=== PATIENT | female | born 1950 | race Caucasian/White ===

== ENCOUNTER 2023-08-10 16:02 | Inpatient (IN) ==
--- NOTE | 2023-08-10 16:23 | ED Triage Note ---
Date of Service August 10, 2023 Provider in Triage Author: Bam Cyr History of Present Illness This patient was briefly evaluated while in triage. An abbreviated physical exam was performed. This patient is a 73-year-old Female who presents to the ED for evaluation of worsening symptoms of pneumonia. The patient reports that she was diagnosed with pneumonia this past Wednesday. The patient is taking amoxicillin 1 g 3 times daily, and does not feel that she is improving. Patient reports notable fatigue, skin hurting and cough. She denies any shortness of breath other than when coughing. Physical Exam CONSTITUTIONAL: Healthy and well nourished. Alert and oriented X 3. GCS 15. HEENT: No scleral icterus or conjunctival injection. RESPIRATORY: The patient has decreased breath sounds bilaterally. No wheezes, crackles or rhonchi. CARDIAC: Tachycardic rhythm without murmurs, rubs or gallops. INTEGUMENTARY: No rash or other significant dermatologic conditions noted. HEMATOLOGIC: No ecchymosis or petechiae. PSYCHIATRIC: Positive affect. NEUROLOGIC: No focal neurologic deficits noted. Initial orders for labs and / or imaging were placed and patient was placed in the waiting area until a bed is available. Please see further documentation for the full ED course.
[2023-08-10 17:25] LABS: Basophils # (auto) 0.04 K/uL (0.00-0.20); Basophils % (auto) 0.4 %; Eosinophils # (auto) 0.04 K/uL (0.00-0.50); Eosinophils % (auto) 0.4 %; Hematocrit (blood only) 35.2 % (37.0-47.0); Hemoglobin 11.9 g/dl (12.0-16.0); Immature Granulocytes # (auto) 0.02 K/uL (0.01-0.20); Immature Granulocytes % (auto) 0.2 %; Lymphocytes # (auto) 0.47 K/uL (1.20-3.40); Lymphocytes % (auto) 5.1 %; Mean Corpuscular Hemoglobin 30.4 pg (25.0-34.0); Mean Corpuscular Hgb Conc 33.8 g/dL (32.0-36.0); Mean Platelet Volume 10.2 fL (9.4-12.4); Monocytes % (auto) 9.7 %; Neutrophils # (auto) 7.81 K/uL (1.40-6.50); Neutrophils % (auto) 84.2 %; Platelet Count 221 K/uL (130-400); RDW Coefficient of Variation 12.3 % (11.5-14.5); RDW Standard Deviation 40.7 fL (36.4-46.3); Red Blood Count 3.91 M/uL (4.20-5.40); White Blood Count 9.28 K/ul (4.8-10.8)
[2023-08-10 17:32] LABS: Alanine Aminotransferase 13 U/L (7-52); Albumin Globulin Ratio 1.1 (0.9-2); Albumin Level 3.7 gm/dl (3.4-5.0); Alkaline Phosphatase 68 U/L (34-104); Anion Gap 8 (3-11); Aspartate Aminotransferase 20 U/L (13-39); BUN Creatinine Ratio 21.2 (10-20); Bilirubin,Total 0.7 mg/dl (0.2-1.0); Blood Urea Nitrogen 18 mg/dl (6-23); Calcium 8.9 mg/dl (8.6-10.3); Carbon Dioxide 24 mmol/L (21-32); Chloride 105 mmol/L (98-107); Est GFR (African American) 79.9 ml/min; Est GFR (Non-African American) 68.9 ml/min; Globulin 3.3 gm/dl (2.5-4.0); Glucose 170 mg/dl (70-99(Fasting)); Potassium 3.5 mmol/L (3.5-5.1); Sodium 137 mmol/L (136-145)
[2023-08-10 17:58] LABS: Adenovirus PCR Not Detected (NotDetected); Bordetella parapertussis PCR Not Detected (NotDetected); Bordetella pertussis PCR Not Detected (NotDetected); Chlamydia pneumoniae PCR Not Detected (NotDetected); Coronavirus 229E PCR Not Detected (NotDetected); Coronavirus CoV-2 (COVID19)PCR Not Detected (NotDetected); Coronavirus HKU1 PCR Not Detected (NotDetected); Coronavirus NL63 PCR Not Detected (NotDetected); Coronavirus OC43PCR Not Detected (NotDetected); Human Metapneumovirus PCR Not Detected (NotDetected); Influenza A PCR Not Detected (NotDetected); Influenza B PCR Not Detected (NotDetected); Mycoplasma pneumoniae PCR Not Detected (NotDetected); Parainfluenza Virus 1 PCR Not Detected (NotDetected); Parainfluenza Virus 2 PCR Not Detected (NotDetected); Parainfluenza Virus 3 PCR Not Detected (NotDetected); Parainfluenza Virus 4 PCR Not Detected (NotDetected); Respiratory Syncytial VirusPCR Not Detected (NotDetected); Rhinovirus/Enterovirus PCR Not Detected (NotDetected)
--- NOTE | 2023-08-10 18:00 | XRay Report ---
XR chest 2V PA/lateral CLINICAL HISTORY: pNEUMONIA TECHNIQUE: 2 views of the chest were obtained. Comparison: None available at the time of this dictation. FINDINGS: No lines and tubes are seen. The cardiomediastinal silhouette is normal. Right lower lung airspace op acities are seen. No evidence of pleural effusion or pneumothorax. IMPRESSION: Right lower lung airspace opacities. This may represent atelectasis, pneumonia, and/or aspiration. ACT 112: Negative or not required by law. Electronically signed by: Reynaldo Gallagher M.D. 08/10/2023 5:59 PM
--- NOTE | 2023-08-10 18:19 | Emergency Department Note ---
Impression & Plan RLL pneumonia ED Provider Note NAME: SHIRA BRANDON AGE: 73 SEX: Female INFORMANT: Patient ED PROVIDER(S): Ghassan Nguyen MD CHIEF COMPLAINT: Cough PLAN: Disposition: Admitted Outpatient prescription management: none Referral: MEDICAL DECISION MAKING: Patient presented with cough and concerns for pneumonia. X-ray imaging reveals right lower lobe pneumonia. No prior history of the same. Her CBC and chemistry panels were rather unremarkable. Inflammatory markers elevated. The patient had some mild tachycardia but otherwise was looking relatively stable. The tachycardia and findings on x-ray coupled with the lack of predisposing factors, negative bio fire, or sick contacts prompted CT imaging. CT imaging confirms pneumonia without evidence of PE or obstructive process. Patient was given a dose of IV Rocephin. She was monitored and was noted to be mildly hypoxic. She did respond well to supplemental nasal cannula oxygen. In light of the situation she will need further management in the hospital. Consultation was made with Dr. Kaylie Holley of the [facility] service. Patient was evaluated in the ER for further management. Care/management discussed with: manager domestic Level of care consideration(s): After review of the information above and other included data, I feel the patient requires escalation of care to admit Triage Nursing notes: reviewed and agree them. Vital Signs: reviewed and remarkable for tachycardia Additional History obtained from: none Chronic Medical/Social Conditions affecting care: none Prior/ Outside/ External records reviewed: none Differential Diagnosis: Viral syndrome, reactive airway disease, pneumonia, pneumothorax, COPD, CHF, infections, cardiac ischemia, pulmonary embolism, musculoskeletal, gastrointestinal, as well as other pathologies. Diagnostics, independently interpreted by me: ECG: ECG was sinus tachycardia 104 bpm. Septal Q waves. No ST elevation Cardiac Monitoring: Cardiac monitoring ordered by me: The patient was placed on continuous cardiac monitoring and observed. It revealed a sinus tachycardic rhythm at 110 beats per minute without ectopy or evidence of dysrhythmia. Medical decision rules: none Imaging studies: Chest x-ray reveals right lower lobe pneumonia. I refer you to the EMR for further details. HPI: 73 year old Female arrives for evaluation of cough. This started last week and is worsening. The patient also notes the following associated symptoms, congestion, pleuritic back pain, mild ALLEN. The patient has been prescribed amoxil 1000m TID for relieving factors. Current pain is rated as 3/10. Using OTC tylenol and ibuprofen as well. Pt denies LOC, headache, fevers, chills, diaphoresis, visual changes, neck pain, chest pain, nausea, vomiting, abdominal pain, back pain, melena, hematochezia, urinary symptoms, numbness, lymphadenopathy, rash, or other complaints. PAST MEDICAL HISTORY: See Below, trigger finger PAST SURGICAL HISTORY: See Below, SOCIAL HISTORY: See Below, non-smoker HOME MEDICATIONS: See Below ALLERGIES: See Below VITALS: See Below PHYSICAL EXAMINATION: GENERAL: Awake, alert, uncomfortable-appearing, in no distress HENT: Normocephalic, atraumatic. Oropharynx unremarkable. EYES: Normal conjunctiva. Sclera non-icteric. NECK: Inspection normal. Non-tender. Supple. No nuchal rigidity. FROM. No masses. RESPIRATORY: Crackles RLL. No wheezes. Normal respiratory effort. CARDIAC: Normal rate. Normal rhythm. No murmurs. No rubs. Extremities warm and well perfused. Pulses equal. No JVD. GI: Soft, non-distended. No tenderness to palpation. No rebound or guarding. No masses. RECTAL: Deferred. MUSCULOSKELETAL: Atraumatic. Chest examination reveals no tenderness. The back is symmetrical on inspection without obvious abnormality. There is no CVA tenderness to palpation. No joint edema. LOWER EXTREMITIES: Calves are equal size bilaterally and non-tender. No edema. No discoloration. NEURO: Normal sensorium. No sensory or motor deficits noted. SKIN: No rash or jaundice noted. PROCEDURES: none CRITICAL CARE: none OBSERVATION NOTE: none Past Med/Surg History Problem List (Updated 08/10/23 @ 18:19 by Ghassan Nguyen MD) RLL pneumonia (Acute) Social History Smoking Status: Unknown if ever smoked Preferred Language: Luxembourgish Feels Safe at Home: Yes Allergies Allergies Allergy/AdvReac Type Severity Reaction Status Date / Time pollen extracts Allergy Intermediate ITCHY Verified 08/10/23 19:08 EYES, SNEEZING, CONGESTION Home Meds Home Medications Medication Instructions Recorded Confirmed amoxicillin 500 mg capsule 1,000 mg PO TID 08/10/23 08/10/23 atorvastatin 20 mg tablet 20 mg PO DAILY 08/10/23 08/10/23 cholecalciferol (vitamin D3) 25 75 mcg PO DAILY 08/10/23 08/10/23 mcg (1,000 unit) capsule (Vitamin D3) doxycycline hyclate 20 mg tablet 20 mg PO BID 08/10/23 08/10/23 levocetirizine 5 mg tablet (Xyzal) 5 mg PO DAILY 08/10/23 08/10/23 lifitegrast 5 % eye drops in a 1 drp OPB DIRECTED 08/10/23 08/10/23 dropperette (Xiidra) vitamins A,C,T-qakf-ohrcfm 2,148 1 tab PO DAILY 08/10/23 08/10/23 mcg-113 mg-45 mg-17.4 mg tablet (PreserVision AREDS) Results & Data (ED) Vital Signs Vital Signs - 24 hr 08/10/23 16:19 08/10/23 17:51 08/10/23 19:00 Temperature 37 C Temperature Source Temporal Artery Scan Pulse Rate 108 H Pulse Rate [Apical] 60 110 H Pulse Rhythm [Apical] Regular Pulse Strength [Apical] Normal Respiratory Rate 19 20 18 Respiratory Effort / Characteristics Non-Labored Spontaneous Non-Labored Spontaneous Non-Labored Spontaneous Respiratory Depth Normal Normal Normal Respiratory Pattern Regular Blood Pressure 136/94 Blood Pressure [Right Arm] 148/72 H 145/72 H Blood Pressure Mean 108 Blood Pressure Mean [Right Arm] 97 96 Blood Pressure Position [Right Arm] Pulse Oximetry 93 95 93 Oxygen Delivery Method Room Air Room Air Room Air Oxygen Flow Rate Sepsis Recent Fever Within 48 Hours No Sepsis New/Unexplained Change in Mental Status N/A Sepsis Action Taken by Nursing No Action Required Oxygen Flow Rate - Titration Pulse Oximetry Post Tiitration 08/10/23 19:21 08/10/23 20:02 08/10/23 20:56 Temperature 37.2 C Temperature Source Oral Pulse Rate 110 H Pulse Rate [Apical] 116 H Pulse Rhythm [Apical] Regular Pulse Strength [Apical] Normal Respiratory Rate 18 Respiratory Effort / Characteristics Non-Labored Spontaneous Respiratory Depth Normal Respiratory Pattern Regular Blood Pressure Blood Pressure [Right Arm] 129/93 Blood Pressure Mean Blood Pressure Mean [Right Arm] 105 Blood Pressure Position [Right Arm] Sitting Pulse Oximetry 94 86 L Oxygen Delivery Method Room Air Room Air Oxygen Flow Rate Sepsis Recent Fever Within 48 Hours Sepsis New/Unexplained Change in Mental Status Sepsis Action Taken by Nursing Oxygen Flow Rate - Titration 3 Pulse Oximetry Post Tiitration 94 08/10/23 22:00 Temperature Temperature Source Pulse Rate Pulse Rate [Apical] 100 H Pulse Rhythm [Apical] Regular Pulse Strength [Apical] Normal Respiratory Rate 18 Respiratory Effort / Characteristics Non-Labored Spontaneous Respiratory Depth Normal Respiratory Pattern Regular Blood Pressure Blood Pressure [Right Arm] 129/93 Blood Pressure Mean Blood Pressure Mean [Right Arm] 105 Blood Pressure Position [Right Arm] Pulse Oximetry 96 Oxygen Delivery Method Nasal Cannula Oxygen Flow Rate 2 Sepsis Recent Fever Within 48 Hours Sepsis New/Unexplained Change in Mental Status Sepsis Action Taken by Nursing Oxygen Flow Rate - Titration Pulse Oximetry Post Tiitration Laboratory Data 08/10/23 16:40 08/10/23 16:40 Lab Results 08/10/23 Range/Units 16:40 WBC 9.28 (4.8-10.8) K/ul RBC 3.91 L (4.20-5.40) M/uL Hgb 11.9 L (12.0-16.0) g/dl Hct 35.2 L (37.0-47.0) % MCV 90.0 (80.0-100.0) fL MCH 30.4 (25.0-34.0) pg MCHC 33.8 (32.0-36.0) g/dL RDW Std Deviation 40.7 (36.4-46.3) fL RDW Coeff of Shoshana 12.3 (11.5-14.5) % Plt Count 221 (130-400) K/uL MPV 10.2 (9.4-12.4) fL Immature Gran % (Auto) 0.2 % Neut % (Auto) 84.2 % Lymph % (Auto) 5.1 % Hemphill % (Auto) 9.7 % Eos % (Auto) 0.4 % Baso % (Auto) 0.4 % Neut # (Auto) 7.81 H (1.40-6.50) K/uL Lymph # (Auto) 0.47 L (1.20-3.40) K/uL Hemphill # (Auto) 0.90 H (0.11-0.59) K/uL Eos # (Auto) 0.04 (0.00-0.50) K/uL Baso # (Auto) 0.04 (0.00-0.20) K/uL Immature Gran # (Auto) 0.02 (0.01-0.20) K/uL ESR 74 H (0-30) mm/hr Sodium 137 (136-145) mmol/L Potassium 3.5 (3.5-5.1) mmol/L Chloride 105 (98-107) mmol/L Carbon Dioxide 24 (21-32) mmol/L Anion Gap 8 (3-11) BUN 18 (6-23) mg/dl Creatinine 0.85 (0.6-1.2) mg/dl Est Cr Clr Drug Dosing Not Reportable Est GFR ( Amer) 79.9 ml/min Est GFR (Non-Af Amer) 68.9 ml/min BUN/Creatinine Ratio 21.2 H (10-20) Glucose 170 H (70-99(Fasting)) mg/dl Calcium 8.9 (8.6-10.3) mg/dl Total Bilirubin 0.7 (0.2-1.0) mg/dl AST 20 (13-39) U/L ALT 13 (7-52) U/L Alkaline Phosphatase 68 (34-104) U/L Troponin I High Sens 8.0 (0-14) pg/ml Total Protein 7.0 (6.0-8.3) gm/dl Albumin 3.7 (3.4-5.0) gm/dl Globulin 3.3 (2.5-4.0) gm/dl Albumin/Globulin Ratio 1.1 (0.9-2) Procalcitonin 0.12 (0-0.5) ng/ml Adenovirus (PCR) Not Detected (NotDetected) B. pertussis DNA (PCR) Not Detected (NotDetected) B.parapertussis DNA PCR Not Detected (NotDetected) Lyme Disease Screen Negative (Negative) C. pneumoniae DNA (PCR) Not Detected (NotDetected) Coronavirus OC43 (PCR) Not Detected (NotDetected) Coronavirus HKU1 (PCR) Not Detected (NotDetected) Coronavirus 229E (PCR) Not Detected (NotDetected) SARS-CoV-2 (PCR) Not Detected (NotDetected) Coronavirus NL63 (PCR) Not Detected (NotDetected) Human Metapneumovir PCR Not Detected (NotDetected) Influenza Type A (PCR) Not Detected (NotDetected) Influenza Type B (PCR) Not Detected (NotDetected) M. pneumoniae (PCR) Not Detected (NotDetected) Parainfluenza 1 (PCR) Not Detected (NotDetected) Parainfluenza 2 (PCR) Not Detected (NotDetected) Parainfluenza 3 (PCR) Not Detected (NotDetected) Parainfluenza 4 (PCR) Not Detected (NotDetected) RSV (PCR) Not Detected (NotDetected) Entero/Rhino (PCR) Not Detected (NotDetected) Administered Medications Azithromycin 500 mg/ Dextrose 255 mls @ 125 mls/hr IV NOW ONE Stop: 08/10/23 23:33 Last Admin: 08/10/23 22:02 Dose: 125 mls/hr Documented By: JAMES Discontinued Medications Ceftriaxone Sodium (Rocephin) 2,000 mg in 50 mls @ 100 mls/hr IV NOW STA Stop: 08/10/23 20:21 Last Infusion: 08/10/23 20:36 Dose: Infused Documented By: Admin: 08/10/23 20:06 Dose: 100 mls/hr Documented By: JAMES Sodium Chloride (Nss) 1,000 mls @ 999 mls/hr IV .Q1H1M ONE Stop: 08/10/23 21:14 Last Infusion: 08/10/23 21:22 Dose: Infused Documented By: Admin: 08/10/23 20:17 Dose: 999 mls/hr Documented By: JAMES Ibuprofen (Ibuprofen 600 Mg Tab) 600 mg PO NOW STA Stop: 08/10/23 20:15 Last Admin: 08/10/23 20:17 Dose: 600 mg Documented By: JAMES Ioversol (Optiray 320 125ml) 120 ml IV ONCE ONE Stop: 08/10/23 18:31 Last Admin: 08/10/23 18:30 Dose: 120 ml Documented By: DAVID Imaging Data Radiologist's Impression: Chest X-Ray 08/10/23 16:23 XR chest 2V PA/lateral CLINICAL HISTORY: pNEUMONIA TECHNIQUE: 2 views of the chest were obtained. Comparison: None available at the time of this dictation. FINDINGS: No lines and tubes are seen. The cardiomediastinal silhouette is normal. Right lower lung airspace opacities are seen. No evidence of pleural effusion or pneumothorax. IMPRESSION: Right lower lung airspace opacities. This may represent atelectasis, pneumonia, and/or aspiration. ACT 112: Negative or not required by law. Electronically signed by: Reynaldo Gallagher M.D. 08/10/2023 5:59 PM Chest CTA 08/10/23 18:21 CT angio chest PE protocol CLINICAL HISTORY: RLL infiltrate on CXR. TECHNIQUE: Multidetector row helical CT of the chest was performed with angiographic protocol. Coronal and sagittal reformations were obtained. Coronal and sagittal MIPS were obtained from the axial data set and were submitted for review. Automated dose lowering techniques and/or adjustment according to patient size were utilized for this exam. CT DOSE: 483.87 mGy.cm Comparison: Comparison is made to chest radiograph 08/10/2023 FINDINGS: Lungs and pleura: Consolidation is seen in the right lower lobe. Atelectasis is seen in the bilateral lower lungs. There is trace right pleural effusion. Heart and pericardium: Heart size is normal. No pericardial effusion. Vessels: No evidence of pulmonary embolism. Mediastinum and mercedez: Subcentimeter lymph nodes are seen. Chest wall and lower neck: Unremarkable. Abdomen: Unremarkable. Bones: Degenerative changes in the thoracic spine. IMPRESSION: No pulmonary embolus. Right lower lobe pneumonia is seen. There is a trace right pleural effusion. ACT 112: Negative or not required by law. Electronically signed by: Reynaldo Gallagher M.D. 08/10/2023 7:40 PM Discharge Plan Visit Data Chief Complaint: Cough Stated Complaint: PNEUMONIA, TREATMENT/NO PROGRESS ED Provider: Ghassan Nguyen Discharge Problem: RLL pneumonia Forms Stand Alone Forms: [facility] Prescriptions Prescriptions: No Action amoxicillin 500 mg capsule 1,000 mg PO TID Rx Instructions: STARTED 08/08/23 FOR 7 DAYS atorvastatin 20 mg tablet 20 mg PO DAILY doxycycline hyclate 20 mg tablet 20 mg PO BID cholecalciferol (vitamin D3) [Vitamin D3] 25 mcg (1,000 unit) Capsule 75 mcg PO DAILY levocetirizine [Xyzal] 5 mg Tablet 5 mg PO DAILY PreserVision AREDS 2,148 mcg-113 mg-45 mg-17.4mg Tablet 1 tab PO DAILY Xiidra 5 % dropperette 1 drp OPB DIRECTED Referrals Referrals: Marline Adair MD [Primary Care Provider] -
[2023-08-10] MEDS: OPTIRAY 320 125ml IV ONE (18:30)
--- NOTE | 2023-08-10 19:41 | CT Scan Report ---
CT angio chest PE protocol CLINICAL HISTORY: RLL infiltrate on CXR. TECHNIQUE: Multidetector row helical CT of the chest was performed with angiographic protocol. Clement l and sagittal reformations were obtained. Coronal and sagittal MIPS were obtained from the axial anita a set and were submitted for review. Automated dose lowering techniques and/or adjustment according to patient size were utilized for this exam. CT DOSE: 483.87 mGy.cm Comparison: Comparison is made to chest radiograph 08/10/2023 FINDINGS: Lungs and pleura: Consolidation is seen in the right lower lobe. Atelectasis is seen in the bilateral lower lungs. There is trace right pleural effusion. Heart and pericardium: Heart size is normal. No pericardial effusion. Vessels: No evidence of pulmonary embolism. Mediastinum and mercedez: Subcentimeter lymph nodes are seen. Chest wall and lower neck: Unremarkable. Abdomen: Unremarkable. Bones: Degenerative changes in the thoracic spine. IMPRESSION: No pulmonary embolus. Right lower lobe pneumonia is seen. There is a trace right pleural effusion. ACT 112: Negative or not required by law. Electronically signed by: Reynaldo Gallagher M.D. 08/10/2023 7:40 PM
[2023-08-10] MEDS: cefTRIAXone SODIUM 2,000 MG/50 ML BAG IV STA (20:06)
[2023-08-10] MEDS: SODIUM CHLORIDE 0.9% 1,000 ML IV ONE (20:17)
[2023-08-10] MEDS: IBUPROFEN 600 MG TAB PO STA (20:17)
[2023-08-10] MEDS: AZITHROMYCIN 500 MG in DEXTROSE 5% 250 ML IV ONE (22:02)
--- NOTE | 2023-08-10 22:07 | History & Physical Report ---
Date of Service August 10, 2023 Assessment & Plan (1) RLL pneumonia: Plan: 73yo female presenting with RLL PNA. Patient afebrile, tachycardic and hypoxic on arrival. Procalcitonin is within normal limits. Respiratory biofire panel is NEGATIVE -Admit to medical with telemetry -Follow cultures sent from ER - of note, blood cultures were sent after administration of antibiotics -Continue Ceftriaxone and Azithromycin for treatment of CAP -Continue supplemental O2 as needed -Flutter valve and incentive spirometry -LR at 125mL/hr x 1L -Guaifenesin 1200mg po BID -Robitussin PRN -Tylenol PRN -Zofran PRN Plan Chronic Issues: Hyperlipidemia - chronic -Continue home Atorvastatin F/E/N - LR at 125mL/hr x 1L, electrolytes WNL, Regular diet as tolerated Ppx - Lovenox Code - Full Dispo - Admit to medical with telemetry History of Present Illness Chief Complaint: shortness of breath Primary Care Provider: Marline Adair MD Edith Jonas is a 73yo female with history of HLP presenting with shortness of breath. Patient developed cough and congestion 4-5 days ago. She went to urgent care and was diagnosed clinically with PNA. She was prescribed Amoxicillin 1000mg po TID which she has been taking without difficulty - no improvement. Patient is from out of town and is camping with her at [facility]. She has had persistent cough as well as fever, chills, body and joint pain. She has bandlike chest discomfort with coughing. She has been taking Ibuprofen and Tylenol with minimal improvement in symptoms. No recent travel or sick contacts. No known pulmonary disease or history of tobacco use. In the ER she is afebrile, tachycardic on arrival with HR of 116, hypoxic at 86% on room air. Now on 2L NC with adequate saturation 97% ER Course: Azithromycin Ceftriaxone Ibuprofen NSS Allergies Allergy/AdvReac Type Severity Reaction Status Date / Time pollen extracts Allergy Intermediate ITCHY Verified 08/10/23 19:08 EYES, SNEEZING, CONGESTION Home Medications Medication Instructions Recorded Confirmed Type amoxicillin 500 mg capsule 1,000 mg PO TID 08/10/23 08/10/23 History atorvastatin 20 mg tablet 20 mg PO DAILY 08/10/23 08/10/23 History cholecalciferol (vitamin D3) 25 75 mcg PO DAILY 08/10/23 08/10/23 History mcg (1,000 unit) capsule (Vitamin D3) doxycycline hyclate 20 mg tablet 20 mg PO BID 08/10/23 08/10/23 History levocetirizine 5 mg tablet (Xyzal) 5 mg PO DAILY 08/10/23 08/10/23 History lifitegrast 5 % eye drops in a 1 drp OPB DIRECTED 08/10/23 08/10/23 History dropperette (Xiidra) vitamins A,C,I-dtqh-vkteam 2,148 1 tab PO DAILY 08/10/23 08/10/23 History mcg-113 mg-45 mg-17.4 mg tablet (PreserVision AREDS) Past Med/Surg History Problem List (Updated 08/11/23 @ 02:25 by Kaylie Holley DO) RLL pneumonia (Acute) Medical History (Updated 08/11/23 @ 02:25 by Kaylie Holley DO) Hyperlipidemia Surgical History (Updated 08/11/23 @ 02:26 by Kaylie Holley DO) History of shoulder surgery Family History (Updated 08/11/23 @ 02:26 by Kaylie Holley DO) Other Coronary heart disease Social History Smoking Status: Former smoker Hx Alcohol Use: Yes Alcohol type: wine Hx Substance Use: No Preferred Language: Tamazight Communication Ability: Effective Beliefs That Will Affect Care: None Current Living Situation: Spouse Feels Safe at Home: Yes Review of Systems Review of Systems: All systems reviewed & are unremarkable except as noted in HPI & below Physical Exam Physical Exam: General: patient resting comfortably, NAD, non-toxic in appearance, AA&O x 4 Skin: warm, dry, intact, no rashes or lesions HEENT: NC/AT, PERRL, EOMI, anicteric sclera, conjunctiva without injection, external ear normal to inspection and nontender, nares patent, moist mucus membranes, dentition intact, no oropharyngeal lesions, neck supple, trachea midline, no LAD, no thyromegaly, no JVD Heart: +S1/S2, regular, tachycardic, no m/r/g Lungs: equal air entry bilaterally, patient coughs with deep breathing, coarse breath sounds bilaterally R > L, no wheeze Abd: +BS, soft, NT/ND, no masses/organomegaly/ascites Ext: warm, 2+ pulses in UE/LE bilaterally, no clubbing/cyanosis or edema Neuro: nonfocal, patient AA&O x 4, speech intact, no facial droop, moving all extremities on command with equal strength 5/5 Results & Data Results & Data Vital Signs (Past 12 Hours) Vital Signs Temp Pulse Pulse Resp BP BP Pulse Ox 08/10/23 20:56 86 L 08/10/23 20:02 37.2 C 116 H 18 129/93 94 08/10/23 19:21 110 H 08/10/23 19:00 110 H 18 145/72 H 93 08/10/23 17:51 60 20 148/72 H 95 08/10/23 16:19 37 C 108 H 19 136/94 93 O2 Del Method 08/10/23 20:56 Room Air 08/10/23 20:02 Room Air 08/10/23 19:21 08/10/23 19:00 Room Air 08/10/23 17:51 Room Air 08/10/23 16:19 Room Air Laboratory Results Laboratory Results WBC 9.28 K/ul (4.8-10.8) 08/10/23 16:40 RBC 3.91 M/uL (4.20-5.40) L 08/10/23 16:40 Hgb 11.9 g/dl (12.0-16.0) L 08/10/23 16:40 Hct 35.2 % (37.0-47.0) L 08/10/23 16:40 MCV 90.0 fL (80.0-100.0) 08/10/23 16:40 MCH 30.4 pg (25.0-34.0) 08/10/23 16:40 MCHC 33.8 g/dL (32.0-36.0) 08/10/23 16:40 RDW Std Deviation 40.7 fL (36.4-46.3) 08/10/23 16:40 RDW Coeff of Shoshana 12.3 % (11.5-14.5) 08/10/23 16:40 Plt Count 221 K/uL (130-400) 08/10/23 16:40 MPV 10.2 fL (9.4-12.4) 08/10/23 16:40 Immature Gran % (Auto) 0.2 % 08/10/23 16:40 Neut % (Auto) 84.2 % 08/10/23 16:40 Lymph % (Auto) 5.1 % 08/10/23 16:40 Addison % (Auto) 9.7 % 08/10/23 16:40 Eos % (Auto) 0.4 % 08/10/23 16:40 Baso % (Auto) 0.4 % 08/10/23 16:40 Neut # (Auto) 7.81 K/uL (1.40-6.50) H 08/10/23 16:40 Lymph # (Auto) 0.47 K/uL (1.20-3.40) L 08/10/23 16:40 Addison # (Auto) 0.90 K/uL (0.11-0.59) H 08/10/23 16:40 Eos # (Auto) 0.04 K/uL (0.00-0.50) 08/10/23 16:40 Baso # (Auto) 0.04 K/uL (0.00-0.20) 08/10/23 16:40 Immature Gran # (Auto) 0.02 K/uL (0.01-0.20) 08/10/23 16:40 ESR 74 mm/hr (0-30) H 08/10/23 16:40 Sodium 137 mmol/L (136-145) 08/10/23 16:40 Potassium 3.5 mmol/L (3.5-5.1) 08/10/23 16:40 Chloride 105 mmol/L (98-107) 08/10/23 16:40 Carbon Dioxide 24 mmol/L (21-32) 08/10/23 16:40 Anion Gap 8 (3-11) 08/10/23 16:40 BUN 18 mg/dl (6-23) 08/10/23 16:40 Creatinine 0.85 mg/dl (0.6-1.2) 08/10/23 16:40 Est Cr Clr Drug Dosing Not Reportable 08/10/23 16:40 Est GFR ( Amer) 79.9 ml/min 08/10/23 16:40 Est GFR (Non-Af Amer) 68.9 ml/min 08/10/23 16:40 BUN/Creatinine Ratio 21.2 (10-20) H 08/10/23 16:40 Glucose 170 mg/dl (70-99(Fasting)) H 08/10/23 16:40 Calcium 8.9 mg/dl (8.6-10.3) 08/10/23 16:40 Total Bilirubin 0.7 mg/dl (0.2-1.0) 08/10/23 16:40 AST 20 U/L (13-39) 08/10/23 16:40 ALT 13 U/L (7-52) 08/10/23 16:40 Alkaline Phosphatase 68 U/L (34-104) 08/10/23 16:40 Troponin I High Sens 8.0 pg/ml (0-14) 08/10/23 16:40 Total Protein 7.0 gm/dl (6.0-8.3) 08/10/23 16:40 Albumin 3.7 gm/dl (3.4-5.0) 08/10/23 16:40 Globulin 3.3 gm/dl (2.5-4.0) 08/10/23 16:40 Albumin/Globulin Ratio 1.1 (0.9-2) 08/10/23 16:40 Procalcitonin 0.12 ng/ml (0-0.5) 08/10/23 16:40 Adenovirus (PCR) Not Detected (NotDetected) 08/10/23 16:40 B. pertussis DNA (PCR) Not Detected (NotDetected) 08/10/23 16:40 B.parapertussis DNA PCR Not Detected (NotDetected) 08/10/23 16:40 Lyme Disease Screen Negative (Negative) 08/10/23 16:40 C. pneumoniae DNA (PCR) Not Detected (NotDetected) 08/10/23 16:40 Coronavirus OC43 (PCR) Not Detected (NotDetected) 08/10/23 16:40 Coronavirus HKU1 (PCR) Not Detected (NotDetected) 08/10/23 16:40 Coronavirus 229E (PCR) Not Detected (NotDetected) 08/10/23 16:40 SARS-CoV-2 (PCR) Not Detected (NotDetected) 08/10/23 16:40 Coronavirus NL63 (PCR) Not Detected (NotDetected) 08/10/23 16:40 Human Metapneumovir PCR Not Detected (NotDetected) 08/10/23 16:40 Influenza Type A (PCR) Not Detected (NotDetected) 08/10/23 16:40 Influenza Type B (PCR) Not Detected (NotDetected) 08/10/23 16:40 M. pneumoniae (PCR) Not Detected (NotDetected) 08/10/23 16:40 Parainfluenza 1 (PCR) Not Detected (NotDetected) 08/10/23 16:40 Parainfluenza 2 (PCR) Not Detected (NotDetected) 08/10/23 16:40 Parainfluenza 3 (PCR) Not Detected (NotDetected) 08/10/23 16:40 Parainfluenza 4 (PCR) Not Detected (NotDetected) 08/10/23 16:40 RSV (PCR) Not Detected (NotDetected) 08/10/23 16:40 Entero/Rhino (PCR) Not Detected (NotDetected) 08/10/23 16:40 Impressions Chest X-Ray 08/10/23 16:23 XR chest 2V PA/lateral CLINICAL HISTORY: pNEUMONIA TECHNIQUE: 2 views of the chest were obtained. Comparison: None available at the time of this dictation. FINDINGS: No lines and tubes are seen. The cardiomediastinal silhouette is normal. Right lower lung airspace opacities are seen. No evidence of pleural effusion or pneumothorax. IMPRESSION: Right lower lung airspace opacities. This may represent atelectasis, pneumonia, and/or aspiration. ACT 112: Negative or not required by law. Electronically signed by: Reynaldo Gallagher M.D. 08/10/2023 5:59 PM Chest CTA 08/10/23 18:21 CT angio chest PE protocol CLINICAL HISTORY: RLL infiltrate on CXR. TECHNIQUE: Multidetector row helical CT of the chest was performed with angiographic protocol. Coronal and sagittal reformations were obtained. Coronal and sagittal MIPS were obtained from the axial data set and were submitted for review. Automated dose lowering techniques and/or adjustment according to patient size were utilized for this exam. CT DOSE: 483.87 mGy.cm Comparison: Comparison is made to chest radiograph 08/10/2023 FINDINGS: Lungs and pleura: Consolidation is seen in the right lower lobe. Atelectasis is seen in the bilateral lower lungs. There is trace right pleural effusion. Heart and pericardium: Heart size is normal. No pericardial effusion. Vessels: No evidence of pulmonary embolism. Mediastinum and mercedez: Subcentimeter lymph nodes are seen. Chest wall and lower neck: Unremarkable. Abdomen: Unremarkable. Bones: Degenerative changes in the thoracic spine. IMPRESSION: No pulmonary embolus. Right lower lobe pneumonia is seen. There is a trace right pleural effusion. ACT 112: Negative or not required by law. Electronically signed by: Reynaldo Gallagher M.D. 08/10/2023 7:40 PM ECG Additional Comments: EKG with ST at 104bpm, normal axis, ER=475, QRS=86, FWx=980, poor R wave progression, no acute ischemic changes Code Status & VTE Plan VTE Prophylaxis Plan VTE Prophylaxis will be ordered: Yes PG Care Time/CCT Total # of Minutes Spent Total Time Spent with Patient: Total time spent is greater than 50% in coordination of care (as documented) at patient's floor/unit and/or counseling patient: Coding Level of Care Code 84832 INT INP/OBS CARE 2/55MIN Diagnoses RLL pneumonia J18.9
[2023-08-10] MEDS ORDERED: ONDANSETRON INJ 2 MG/ML 2 ML VIAL IV PRN (23:51)
[2023-08-11] MEDS: LACTATED RINGER'S 1,000 ML IV SCH (00:14)
[2023-08-11] MEDS: guaiFENesin/DEXTROM SYRUP 200MG/20MG 10ML UDC PO PRN (03:13)
[2023-08-11] MEDS: ACETAMINOPHEN 325 MG TAB PO PRN (03:13)
[2023-08-11 07:20] LABS: Hematocrit (blood only) 33.7 % (37.0-47.0); Hemoglobin 11.1 g/dl (12.0-16.0); Mean Corpuscular Hemoglobin 30.4 pg (25.0-34.0); Mean Corpuscular Hgb Conc 32.9 g/dL (32.0-36.0); Mean Corpuscular Volume 92.3 fL (80.0-100.0); Platelet Count 215 K/uL (130-400); RDW Coefficient of Variation 12.4 % (11.5-14.5); Red Blood Count 3.65 M/uL (4.20-5.40); White Blood Count 9.67 K/ul (4.8-10.8)
[2023-08-11 07:47] LABS: BUN Creatinine Ratio 16.4 (10-20); Calcium 8.4 mg/dl (8.6-10.3); Est GFR (Non-African American) 82.9 ml/min; Potassium 3.6 mmol/L (3.5-5.1)
[2023-08-11] MEDS: ENOXAPARIN INJ 40 MG/0.4 ML SYR SQ SCH (08:32)
[2023-08-11] MEDS: ATORVASTATIN 20 MG TAB PO SCH (08:33)
[2023-08-11] MEDS: guaiFENesin 600 MG TABCR PO SCH (08:34)
--- NOTE | 2023-08-11 14:44 | Hospitalist Progress Note ---
Date of Service August 11, 2023 Assessment & Plan (1) RLL pneumonia: Plan: Presents to the hospital on account of worsening shortness of breath. Chest x-ray showed evidence of right lower lobe pneumonia. Respiratory bio fire is negative Cultures already obtained, result pending Continue Diez IV ceftriaxone and azithromycin Continue supplemental oxygen (2) Hypoxia: Plan: Secondary to pneumonia Currently untreated oxygen through nasal cannula Wean as tolerated Plan Chronic Issues: Hyperlipidemia - chronic -Continue home Atorvastatin F/E/N - LR at 125mL/hr x 1L, electrolytes WNL, Regular diet as tolerated Ppx - Lovenox Code - Full Dispo - Admit to medical with telemetry Admission and Anticipated Discharge Date Admission Date: August 10, 2023 Subjective Patient seen and examined, still little short of breath, on oxygen 3 L per nasal cannula. Denies fevers or chills Review of Systems Review of Systems: All systems reviewed are negative, apart from the ones contained in the history. Physical Exam Physical Exam: The patient is awake, alert and oriented 3, well developed and well nourished, normocephalic and atraumatic, lying in bed and in no acute distress. HEENT--PERRL, EOMI, mucous membranes and oropharynx mildly dry Neck--supple. No JVD. No bruits. Thyroid normal, trachea midline, no adenopathy. Heart--normal S1 and S2. No murmurs, rubs or gallops. Lungs--clear bilaterally, no respiratory distress, no accessory muscle use. Abdomen--normal bowel sounds and soft. Extremities--no cyanosis or clubbing. No edema. Dermatologic--normal skin turgor, normal color, no abnormal lymph nodes, no rash. Neurologic--cranial nerves II through XII grossly intact. Rheumatologic--normal range of motion. Psychiatric--normal affect. Results & Data Results & Data Vital Signs (Past 12 Hours) Vital Signs Temp Pulse Pulse Pulse Resp BP BP 08/11/23 10:54 99.0 F 89 18 126/74 08/11/23 09:16 08/11/23 07:18 99.0 F 100 H 18 136/72 08/11/23 07:12 92 H 08/11/23 04:00 98.8 F 98 H 18 128/67 Pulse Ox O2 Del Method O2 Flow Rate 08/11/23 10:54 95 Nasal Cannula 3 08/11/23 09:16 Nasal Cannula 3 08/11/23 07:18 95 Nasal Cannula 3 08/11/23 07:12 08/11/23 04:00 94 Nasal Cannula 3 PG Care Time/CCT Total # of Minutes Spent Total Time Spent with Patient: Total time spent is greater than 50% in coordination of care (as documented) at patient's floor/unit and/or counseling patient: Coding Level of Care Code 73734 SUB INP/OBS CARE 2/35MIN Diagnoses RLL pneumonia J18.9 Hypoxia R09.02 Time Spent (min) 35
[2023-08-11] MEDS: SODIUM CHLORIDE 0.9% 1,000 ML IV SCH (15:26)
--- NOTE | 2023-08-11 16:18 | Electrocardiogram Report ---
Test Reason : Blood Pressure : / mmHG Vent. Rate : 104 BPM Atrial Rate : 104 BPM P-R Int : 136 ms QRS Dur : 086 ms QT Int : 298 ms P-R-T Axes : 059 040 042 degrees QTc Int : 391 ms Sinus tachycardia Septal infarct , age undetermined Abnormal ECG No previous ECGs available Confirmed by Rodriguez Alas ([id number]) on 08/11/2023 4:18:26 PM Referred By: REFERRED SELF Confirmed By:Rodriguez Alas
[2023-08-11] MEDS: cefTRIAXone SODIUM 1,000 MG/50 ML BAG IV SCH (19:50)
[2023-08-11] MEDS: AZITHROMYCIN 250 MG in DEXTROSE 5% 250 ML IV SCH (20:38)
[2023-08-12 08:28] LABS: Hematocrit (blood only) 32.1 % (37.0-47.0); Hemoglobin 10.6 g/dl (12.0-16.0); Mean Corpuscular Hemoglobin 30.1 pg (25.0-34.0); Mean Corpuscular Volume 91.2 fL (80.0-100.0); Mean Platelet Volume 9.7 fL (9.4-12.4); Platelet Count 234 K/uL (130-400); RDW Coefficient of Variation 12.3 % (11.5-14.5); RDW Standard Deviation 41.4 fL (36.4-46.3); Red Blood Count 3.52 M/uL (4.20-5.40); White Blood Count 9.63 K/ul (4.8-10.8)
[2023-08-12 08:45] LABS: BUN Creatinine Ratio 14.3 (10-20); Calcium 8.1 mg/dl (8.6-10.3); Creatinine Clr Calc Pharmacy 63.7 ml/min; Est GFR (Non-African American) 87.2 ml/min; Potassium 3.6 mmol/L (3.5-5.1)
--- NOTE | 2023-08-12 11:17 | Hospitalist Progress Note ---
Date of Service August 12, 2023 Assessment & Plan (1) RLL pneumonia: Plan: Presents to the hospital on account of worsening shortness of breath. Chest x-ray showed evidence of right lower lobe pneumonia. Respiratory bio fire is negative Cultures already obtained, result pending Continue empiric IV ceftriaxone and azithromycin Continue supplemental oxygen Patient feels better today (2) Hypoxia: Plan: Secondary to pneumonia Currently on 3L oxygen through nasal cannula Wean as tolerated Plan Chronic Issues: Hyperlipidemia - chronic -Continue home Atorvastatin F/E/N - LR at 125mL/hr x 1L, electrolytes WNL, Regular diet as tolerated Ppx - Lovenox Code - Full Dispo - hopefully d/c in the next 24 to 48 hrs Admission and Anticipated Discharge Date Admission Date: August 10, 2023 Subjective Patient seen and examined, still little short of breath, on oxygen 3 L per nasal cannula. Denies fevers or chills, feels a little better Review of Systems Review of Systems: All systems reviewed are negative, apart from the ones contained in the history. Physical Exam Physical Exam: The patient is awake, alert and oriented 3, well developed and well nourished, normocephalic and atraumatic, lying in bed and in no acute distress. HEENT--PERRL, EOMI, mucous membranes and oropharynx mildly dry Neck--supple. No JVD. No bruits. Thyroid normal, trachea midline, no adenopathy. Heart--normal S1 and S2. No murmurs, rubs or gallops. Lungs--clear bilaterally, no respiratory distress, no accessory muscle use. Abdomen--normal bowel sounds and soft. Extremities--no cyanosis or clubbing. No edema. Dermatologic--normal skin turgor, normal color, no abnormal lymph nodes, no rash. Neurologic--cranial nerves II through XII grossly intact. Rheumatologic--normal range of motion. Psychiatric--normal affect. Results & Data Results & Data Vital Signs (Past 12 Hours) Vital Signs Temp Pulse Pulse Resp BP Pulse Ox O2 Del Method 08/12/23 10:03 Nasal Cannula 08/12/23 08:17 98.1 F 95 H 19 132/74 93 Nasal Cannula 08/12/23 08:10 96 H 08/12/23 04:00 98.1 F 102 H 18 142/75 H 94 Nasal Cannula 08/12/23 00:24 93 H 08/11/23 23:32 98.2 F 89 18 129/72 94 Nasal Cannula O2 Flow Rate 08/12/23 10:03 3 08/12/23 08:17 3 08/12/23 08:10 08/12/23 04:00 3 08/12/23 00:24 08/11/23 23:32 3 PG Care Time/CCT Total # of Minutes Spent Total Time Spent with Patient: Total time spent is greater than 50% in coordination of care (as documented) at patient's floor/unit and/or counseling patient: Coding Level of Care Code 84537 SUB INP/OBS CARE 2/35MIN Diagnoses RLL pneumonia J18.9 Hypoxia R09.02 Time Spent (min) 35
[2023-08-13 07:29] LABS: Hematocrit (blood only) 32.6 % (37.0-47.0); Mean Corpuscular Hemoglobin 30.8 pg (25.0-34.0); Mean Corpuscular Hgb Conc 33.7 g/dL (32.0-36.0); Mean Corpuscular Volume 91.3 fL (80.0-100.0); Mean Platelet Volume 9.6 fL (9.4-12.4); Platelet Count 243 K/uL (130-400); RDW Coefficient of Variation 12.2 % (11.5-14.5); Red Blood Count 3.57 M/uL (4.20-5.40); White Blood Count 6.33 K/ul (4.8-10.8)
[2023-08-13 08:05] LABS: BUN Creatinine Ratio 14.3 (10-20); Calcium 8.1 mg/dl (8.6-10.3); Creatinine Clr Calc Pharmacy 70.7 ml/min; Est GFR (African American) 104.6 ml/min; Est GFR (Non-African American) 90.2 ml/min; Potassium 3.4 mmol/L (3.5-5.1)
--- NOTE | 2023-08-13 13:29 | Discharge Summary ---
Date of Service August 13, 2023 Admission HPI Per Admitting Provider Edith Jonas is a 73yo female with history of HLP presenting with shortness of breath. Patient developed cough and congestion 4-5 days ago. She went to urgent care and was diagnosed clinically with PNA. She was prescribed Amoxicillin 1000mg po TID which she has been taking without difficulty - no improvement. Patient is from out of town and is camping with her at [facility]. She has had persistent cough as well as fever, chills, body and joint pain. She has bandlike chest discomfort with coughing. She has been taking Ibuprofen and Tylenol with minimal improvement in symptoms. No recent travel or sick contacts. No known pulmonary disease or history of tobacco use. In the ER she is afebrile, tachycardic on arrival with HR of 116, hypoxic at 86% on room air. Now on 2L NC with adequate saturation 97% ER Course: Azithromycin Ceftriaxone Ibuprofen NSS Principal Diagnosis lobar pna Discharge Exam The patient is awake, alert and oriented 3, well developed and well nourished, normocephalic and atraumatic, lying in bed and in no acute distress. HEENT--PERRL, EOMI, mucous membranes and oropharynx mildly dry Neck--supple. No JVD. No bruits. Thyroid normal, trachea midline, no adenopathy. Heart--normal S1 and S2. No murmurs, rubs or gallops. Lungs--clear bilaterally, no respiratory distress, no accessory muscle use. Abdomen--normal bowel sounds and soft. Extremities--no cyanosis or clubbing. No edema. Dermatologic--normal skin turgor, normal color, no abnormal lymph nodes, no rash. Neurologic--cranial nerves II through XII grossly intact. Rheumatologic--normal range of motion. Psychiatric--normal affect. Discharge Data Allergies Allergy/AdvReac Type Severity Reaction Status Date / Time pollen extracts Allergy Intermediate ITCHY Verified 08/10/23 19:08 EYES, SNEEZING, CONGESTION Consultations 08/10/23 21:44 ED Decision to Admit Stat Ordered Studies 08/10/23 18:21 CT for pulmonary embolism PE [CT angio chest PE protocol] Stat Hospital Course (1) RLL pneumonia: Presents to the hospital on account of worsening shortness of breath. Chest x-ray showed evidence of right lower lobe pneumonia. Respiratory bio fire is negative Cultures already obtained, result pending Continue empiric IV ceftriaxone and azithromycin Continue supplemental oxygen Patient feels better today Discharged on p.o. azithromycin and cefdinir for 5 days (2) Hypoxia: Secondary to pneumonia Requiring 2 L of oxygen after two-step Discharged on home oxygen Plan Chronic Issues: Hyperlipidemia - chronic -Continue home Atorvastatin F/E/N - LR at 125mL/hr x 1L, electrolytes WNL, Regular diet as tolerated Ppx - Lovenox Code - Full Dispo - hopefully d/c in the next 24 to 48 hrs Total Time Total Time Spent Total Time Spent (In Minutes): 35 Discharge Plan Discharge Items Patient Disposition: Home - Self-Care Reason For Visit: PNEUMONIA Discharge Diagnosis: lobar PNA Activity: Resume your previous activity Non-emergency contact: Primary Care Provider Call non-emergency contact if: you have any medication questions Follow-up/Referrals: Marline Adair MD [Primary Care Provider] - (PLEASE CALL YOUR PRIMARY CARE PROVIDER TO SCHEDULE A HOSPITAL DISCHARGE FOLLOW-UP APPOINTMENT WITHIN 7-10 DAYS) Diet: Regular Addtl Attending Provider Instructions: Please make appointment to follow-up with her regular PCP Pending Studies at Discharge: No Stand-Alone Forms: [employer], Smoking Cessation Medications and DC Order Prescriptions: New azithromycin 500 mg tablet 500 mg PO DAILY 5 Days Qty: 5 0RF cefdinir 300 mg capsule 300 mg PO BID 5 Days Qty: 10 0RF Continued atorvastatin 20 mg tablet 20 mg PO DAILY cholecalciferol (vitamin D3) [Vitamin D3] 25 mcg (1,000 unit) Capsule 75 mcg PO DAILY levocetirizine [Xyzal] 5 mg Tablet 5 mg PO DAILY PreserVision AREDS 2,148 mcg-113 mg-45 mg-17.4mg Tablet 1 tab PO DAILY Xiidra 5 % dropperette 1 drp OPB DIRECTED Discontinued amoxicillin 500 mg capsule 1,000 mg PO TID Rx Instructions: STARTED 08/08/23 FOR 7 DAYS doxycycline hyclate 20 mg tablet 20 mg PO BID Discharge Orders: Discharge Order (Routine); Ordered 08/13/23 Ordered By: Destiny Schneider/Other Patient Handouts: Azithromycin Oral Tablet, Cefdinir Oral Capsule Admission Data Admit Date/Time: 08/10/23 22:06 Attending Provider: Destiny Proctor Admit Provider: Kaylie Holley Primary Care Provider: Marline Adair Other Providers: Kaylie Holley Other Interventions: Discharge Summary Assessment (RN) Last Done: 08/13/23 11:39 Coding Level of Care Code 01932 INP/OBS DISCH >30 MIN Diagnoses RLL pneumonia J18.9 Hypoxia R09.02 Time Spent (min) 35
--- NOTE | 2023-08-13 14:15 | Hospitalist Progress Note ---
Date of Service August 13, 2023 Assessment & Plan (1) RLL pneumonia: Plan: Presents to the hospital on account of worsening shortness of breath. Chest x-ray showed evidence of right lower lobe pneumonia. Respiratory bio fire is negative Cultures already obtained, result pending Continue empiric IV ceftriaxone and azithromycin Continue supplemental oxygen Patient feels better today Will discharge on p.o. azithromycin and cefdinir for 5 days tomorrow (2) Hypoxia: Plan: Secondary to pneumonia Requiring 2 L of oxygen after two-step Discharged on home oxygen, but no oxygen company available for oxygen delivery today will d/c tomorrow Plan Chronic Issues: Hyperlipidemia - chronic -Continue home Atorvastatin F/E/N - LR at 125mL/hr x 1L, electrolytes WNL, Regular diet as tolerated Ppx - Lovenox Code - Full Dispo - hopefully d/c in the next 24 to 48 hrs Admission and Anticipated Discharge Date Admission Date: August 10, 2023 Subjective Patient seen and examined, Shortness of breath is much improved Review of Systems Review of Systems: All systems reviewed are negative, apart from the ones contained in the history. Physical Exam Physical Exam: The patient is awake, alert and oriented 3, well developed and well nourished, normocephalic and atraumatic, lying in bed and in no acute distress. HEENT--PERRL, EOMI, mucous membranes and oropharynx mildly dry Neck--supple. No JVD. No bruits. Thyroid normal, trachea midline, no adenopathy. Heart--normal S1 and S2. No murmurs, rubs or gallops. Lungs--clear bilaterally, no respiratory distress, no accessory muscle use. Abdomen--normal bowel sounds and soft. Extremities--no cyanosis or clubbing. No edema. Dermatologic--normal skin turgor, normal color, no abnormal lymph nodes, no rash. Neurologic--cranial nerves II through XII grossly intact. Rheumatologic--normal range of motion. Psychiatric--normal affect. Results & Data Results & Data Vital Signs (Past 12 Hours) Vital Signs Temp Pulse Pulse Pulse Pulse Pulse Resp 08/13/23 11:45 98.6 F 92 H 18 08/13/23 11:39 97.7 F 84 16 08/13/23 10:25 110 H 96 H 98 H 08/13/23 08:35 08/13/23 07:19 97.7 F 84 16 08/13/23 07:14 79 08/13/23 03:18 98.1 F 85 18 Resp Resp Resp BP BP Pulse Ox Pulse Ox 08/13/23 11:45 148/81 H 98 08/13/23 11:39 137/75 128/67 96 08/13/23 10:25 22 16 16 90 08/13/23 08:35 08/13/23 07:19 137/75 96 08/13/23 07:14 08/13/23 03:18 135/73 94 Pulse Ox Pulse Ox O2 Del Method O2 Flow Rate O2 Flow Rate O2 Flow Rate 08/13/23 11:45 Nasal Cannula 2 08/13/23 11:39 08/13/23 10:25 92 86 L 2 2 08/13/23 08:35 Nasal Cannula 1 08/13/23 07:19 Nasal Cannula 2 08/13/23 07:14 08/13/23 03:18 Nasal Cannula 2 PG Care Time/CCT Total # of Minutes Spent Total Time Spent with Patient: Total time spent is greater than 50% in coordination of care (as documented) at patient's floor/unit and/or counseling patient: Coding Level of Care Code 92627 SUB INP/OBS CARE 2/35MIN Diagnoses RLL pneumonia J18.9 Hypoxia R09.02 Time Spent (min) 35
[2023-08-13] MEDS: CEFDINIR 300 MG CAP PO STA (15:31)
[2023-08-13] MEDS: AZITHROMYCIN 250 MG TAB PO ONE (15:31)
--- NOTE | 2023-08-14 08:42 | Discharge Summary ---
Date of Service August 14, 2023 Admission HPI Per Admitting Provider Edith Jonas is a 73yo female with history of HLP presenting with shortness of breath. Patient developed cough and congestion 4-5 days ago. She went to urgent care and was diagnosed clinically with PNA. She was prescribed Amoxicillin 1000mg po TID which she has been taking without difficulty - no improvement. Patient is from out of town and is camping with her at [facility]. She has had persistent cough as well as fever, chills, body and joint pain. She has bandlike chest discomfort with coughing. She has been taking Ibuprofen and Tylenol with minimal improvement in symptoms. No recent travel or sick contacts. No known pulmonary disease or history of tobacco use. In the ER she is afebrile, tachycardic on arrival with HR of 116, hypoxic at 86% on room air. Now on 2L NC with adequate saturation 97% ER Course: Azithromycin Ceftriaxone Ibuprofen NSS Principal Diagnosis lobar pna Discharge Exam The patient is awake, alert and oriented 3, well developed and well nourished, normocephalic and atraumatic, lying in bed and in no acute distress. HEENT--PERRL, EOMI, mucous membranes and oropharynx mildly dry Neck--supple. No JVD. No bruits. Thyroid normal, trachea midline, no adenopathy. Heart--normal S1 and S2. No murmurs, rubs or gallops. Lungs--clear bilaterally, no respiratory distress, no accessory muscle use. Abdomen--normal bowel sounds and soft. Extremities--no cyanosis or clubbing. No edema. Dermatologic--normal skin turgor, normal color, no abnormal lymph nodes, no rash. Neurologic--cranial nerves II through XII grossly intact. Rheumatologic--normal range of motion. Psychiatric--normal affect. Discharge Data Allergies Allergy/AdvReac Type Severity Reaction Status Date / Time pollen extracts Allergy Intermediate ITCHY Verified 08/10/23 19:08 EYES, SNEEZING, CONGESTION Consultations 08/10/23 21:44 ED Decision to Admit Stat Ordered Studies 08/10/23 18:21 CT for pulmonary embolism PE [CT angio chest PE protocol] Stat Hospital Course (1) RLL pneumonia: Presents to the hospital on account of worsening shortness of breath. Chest x-ray showed evidence of right lower lobe pneumonia. Respiratory bio fire is negative Cultures already obtained, result pending Continue empiric IV ceftriaxone and azithromycin Continue supplemental oxygen Patient feels better today Will discharge on p.o. azithromycin and cefdinir for 5 days today (2) Hypoxia: Secondary to pneumonia Requiring 2 L of oxygen after two-step Discharged on home oxygen, but no oxygen company available for oxygen delivery today will d/c tomorrow Plan Chronic Issues: Hyperlipidemia - chronic -Continue home Atorvastatin F/E/N - LR at 125mL/hr x 1L, electrolytes WNL, Regular diet as tolerated Ppx - Lovenox Code - Full Dispo - hopefully d/c in the next 24 to 48 hrs Total Time Total Time Spent Total Time Spent (In Minutes): 35 Discharge Plan Discharge Items Patient Disposition: Home - Self-Care Reason For Visit: PNEUMONIA Discharge Diagnosis: lobar PNA Activity: Resume your previous activity Non-emergency contact: Primary Care Provider Call non-emergency contact if: you have any medication questions Follow-up/Referrals: Marline Adair MD [Primary Care Provider] - (PLEASE CALL YOUR PRIMARY CARE PROVIDER TO SCHEDULE A HOSPITAL DISCHARGE FOLLOW-UP APPOINTMENT WITHIN 7-10 DAYS) Diet: Regular Addtl Attending Provider Instructions: Please make appointment to follow-up with her regular PCP Pending Studies at Discharge: No Stand-Alone Forms: My [facility] BOLD Guidance, Smoking Cessation Medications and DC Order Prescriptions: New azithromycin 500 mg tablet 500 mg PO DAILY 5 Days Qty: 5 0RF cefdinir 300 mg capsule 300 mg PO BID 5 Days Qty: 10 0RF Continued atorvastatin 20 mg tablet 20 mg PO DAILY cholecalciferol (vitamin D3) [Vitamin D3] 25 mcg (1,000 unit) Capsule 75 mcg PO DAILY levocetirizine [Xyzal] 5 mg Tablet 5 mg PO DAILY PreserVision AREDS 2,148 mcg-113 mg-45 mg-17.4mg Tablet 1 tab PO DAILY Xiidra 5 % dropperette 1 drp OPB DIRECTED Discontinued amoxicillin 500 mg capsule 1,000 mg PO TID Rx Instructions: STARTED 08/08/23 FOR 7 DAYS doxycycline hyclate 20 mg tablet 20 mg PO BID Discharge Orders: Discharge Order (Routine); Ordered 08/14/23 Ordered By: Destiny Schnedier/Other Patient Handouts: Azithromycin Oral Tablet, Cefdinir Oral Capsule Admission Data Admit Date/Time: 08/10/23 22:06 Attending Provider: Destiny Proctor Admit Provider: Kaylie Holley Primary Care Provider: Marline Adair Other Providers: Kaylie Holley Other Interventions: Discharge Summary Assessment (RN) Last Done: 08/13/23 11:39 Coding Level of Care Code 61153 INP/OBS DISCH >30 MIN Diagnoses RLL pneumonia J18.9 Hypoxia R09.02 Time Spent (min) 35
== END 2023-08-14 08:33 | disposition home or self-care (01) | DRG 195 ==
LOC: ED 16:02 → SUATTDRO 22:06 → 2N 22:06